=== PATIENT | female | born 1985 | race Two or more races ===

== ENCOUNTER 2017-03-10 03:55 | Inpatient (IN) | payer SELFPAY ==
[2017-03-10] MEDS ORDERED: IV RINGERS,LACTATED 1000ML 1,000 ML IV (04:30)
[2017-03-10] MEDS ORDERED: 0.9 % SODIUM CHLORIDE 10 ML DISP.SYRIN. IV ×2 (04:45→11:15)
[2017-03-10] MEDS ORDERED: TERBUTALINE 1 MG/ML VIAL. SQ (04:45)
[2017-03-10] MEDS ORDERED: fentaNYL PF VIAL 100 MCG/2 ML VIAL IV (04:45)
[2017-03-10] MEDS ORDERED: LIDOCAINE 1% PF 30 ML VIAL. INJ (04:45)
[2017-03-10] MEDS ORDERED: AMPICILLIN SODIUM 1 GM in IV NORMAL SALINE 50ML 50 ML IV (04:45)
[2017-03-10] MEDS ORDERED: BUTORPHANOL 2 MG/ML VIAL. IV ×2 (04:45)
[2017-03-10] MEDS: IV RINGERS,LACTATED 1000ML 1,000 ML IV (04:54)
[2017-03-10] MEDS: AMPICILLIN SODIUM 2 GM in IV NORMAL SALINE 100ML 100 ML IV (05:20)
[2017-03-10 06:09] LABS: HEMATOCRIT 38.5 % (36.0-47.0); HEMOGLOBIN 12.5 g/dL (12.0-15.5); MEAN CORPUSCULAR HEMOGLOBIN 27 pg (25-35); MEAN CORPUSCULAR HGB CONC 33 g/dL (31-37); MEAN CORPUSCULAR VOLUME 83 fL (79-100); PLATELET COUNT 144 x10^3/uL (140-400); RED BLOOD COUNT 4.61 x10^6/uL (3.50-5.40); RED CELL DISTRIBUTION WIDTH 14.5 % (11.5-14.5); WHITE BLOOD COUNT 8.1 x10^3/uL (4.0-11.0)
[2017-03-10] MEDS: OXYTOCIN 30 UNIT/500 ML PREMIX 500 ML IV ×2 (08:46)
[2017-03-10] MEDS ORDERED: AMPICILLIN SODIUM IV Push 1 GM VIAL. IVP (09:00)
[2017-03-10] MEDS: IBUPROFEN 600 MG TABLET. PO (10:27)
[2017-03-10] MEDS ORDERED: MAGNESIUM HYDROXIDE 2,400 MG/30 ML ORAL.SUSP. PO (11:15)
[2017-03-10] MEDS ORDERED: diphenhydrAMINE HCL 25 MG CAPSULE PO (11:15)
[2017-03-10] MEDS ORDERED: MMR per PROTOCOL. MC (11:15)
[2017-03-10] MEDS ORDERED: PHENYLEPH/MINERAL OIL/PETROLAT RECTAL OINTMENT 28GM TUBE. RC (11:15)
[2017-03-10] MEDS ORDERED: ACETAMINOPHEN 325 MG TABLET. PO (11:15)
[2017-03-10] MEDS ORDERED: ZOLPIDEM 5 MG TABLET. PO (11:15)
[2017-03-10] MEDS ORDERED: OXYTOCIN 30 UNIT/500 ML PREMIX 500 ML IV (11:15)
[2017-03-10] MEDS ORDERED: MAG HYDROX/ALUMINUM HYD/SIMETH 30 ML ORAL.SUSP PO (11:15)
[2017-03-10] MEDS ORDERED: BENZOCAINE 20% TOPICAL AEROSOL SPRAY 57GM CAN. TP (11:15)
[2017-03-10] MEDS ORDERED: HYDROCORTISONE 1% TOPICAL OINTMENT 30GM TUBE. TP (11:15)
[2017-03-10] MEDS ORDERED: SIMETHICONE 80 MG TAB.CHEW PO (11:15)
[2017-03-11 05:49] LABS: HEMATOCRIT 35.6 % (36.0-47.0)
[2017-03-11] MEDS: FERROUS SULFATE 325 MG TABLET. PO ×2 (08:00→17:00)
[2017-03-11] MEDS: IBUPROFEN 600 MG TABLET. PO (18:18)
[2017-03-13 08:21] LABS: RPR Non Reactive (Non Reactive)
== END 2017-03-12 16:05 | disposition home or self-care (01) | DRG 775 ==
LOC: 3 SO LND 03:55 → 3 NORTH 11:01
PROC: 10E0XZZ Delivery of Products of Conception, External Approach (ICD-10-PCS; principal; 2017-03-10)
DX: O80 Encounter for full-term uncomplicated delivery (principal); Z37.0 Single live birth; Z3A.40 40 weeks gestation of pregnancy
CPT/HCPCS: 36415; 85014; 85027; 86593; 86850; 86900; 86901; J0290; J2590; J7120

== ENCOUNTER 2020-02-28 21:43 | Emergency (ER) | payer MEDICAID ==
[~2020-02-28] VITALS: Ht 162.6 cm; Wt 109.0 kg
[~2020-02-28 21:43] MED LIST: HYDR-3164 PO; NAPR-514 PO
--- NOTE | 2020-02-28 21:53 | PHYS DOC ---
Past Medical History Smoking Status: Never Smoker (ROSELYN JOHNSON APRN) General Adult EDM: Chief Complaint: DIZZY/LIGHT HEADED HPI: HPI: Patient is a 35 year old female 6 para 5 currently 38 weeks presenting to the ED today complaining of nausea vomiting and dizziness that began this evening. Patient denies any abdominal pain, denies any back pain. Denies any vaginal bleeding. She states she follows up with an AVIONICS REPAIR TECHNICIAN at [facility]. Patient is Israeli-speaking, interpretation is provided by [employer] marina manager (ROSELYN JOHNSON APRN) Review of Systems: Review of Systems: Constitutional: Denies fever or chills. [] Eyes: Denies change in visual acuity. [] HENT: Denies nasal congestion or sore throat. [] Respiratory: Denies cough or shortness of breath. [] Cardiovascular: Denies chest pain or edema. [] GI: Reports being . Reports nausea vomiting. Denies abdominal pain, bloody stools or diarrhea. [] : Denies dysuria. [] Musculoskeletal: Denies back pain or joint pain. [] Integument: Denies rash. [] Neurologic: Reports dizziness. Denies headache, focal weakness or sensory changes. [] Psychiatric: Denies depression or anxiety. [] (ROSELYN JOHNSON APRN) Heart Score: Risk Factors: Risk Factors: DM, Current or recent (<one month) smoker, HTN, HLP, family history of CAD, obesity. Risk Scores: Score 0 - 3: 2.5% MACE over next 6 weeks - Discharge Home Score 4 - 6: 20.3% MACE over next 6 weeks - Admit for Clinical Observation Score 7 - 10: 72.7% MACE over next 6 weeks - Early Invasive Strategies (ROSELYN JOHNSON APRN) Allergies: Allergies: Allergies Coded Allergies Type Severity Reaction Last Updated Verified No Known Drug Allergies 03/10/17 No (ROSELYN JOHNSON APRN) Physical Exam: PE: Constitutional: Well developed, well nourished, no acute distress, non-toxic appearance. [] HENT: Normocephalic, atraumatic, bilateral external ears normal, oropharynx mo ist, no oral exudates, nose normal. [] Eyes: PERRLA, EOMI, conjunctiva normal, no discharge. [] Neck: Normal range of motion, no tenderness, supple, no stridor. [] Cardiovascular:Heart rate regular rhythm, no murmur [] Lungs & Thorax: Bilateral breath sounds clear to auscultation [] Abdomen: Gravid abdomen. Bowel sounds normal, soft, no tenderness, no masses, no pulsatile masses. [] Skin: Warm, dry, no erythema, no rash. [] Back: No tenderness, no CVA tenderness. [] Extremities: No tenderness, no cyanosis, no clubbing, ROM intact, no edema. [] Neurologic: Alert and oriented X 3, normal motor function, normal sensory function, no focal deficits noted. [] Psychologic: Affect normal, judgement normal, mood normal. [] (ROSELYN JOHNSON APRN) EKG: EKG: [] (ROSELYN JOHNSON APRN) Radiology/Procedures: Radiology/Procedures: [] (ROSELYN JOHNSON APRN) Course & Med Decision Making: Course & Med Decision Making Pertinent Labs and Imaging studies reviewed. (See chart for details) This is a 35-year-old female patient 6 para 5 currently 38 weeks presenting to the ED today complaining of nausea vomiting and dizziness that began this evening. Patient has no abdominal pain, no back pain, no vaginal bleeding. Labs are negative for any acute findings including UA. Patient was given IV fluids and Zofran. Feeling better. Discharge to OB for monitoring. (ROSELYN JOHNSON APRN) Dragon Disclaimer: Dragon Disclaimer: This electronic medical record was generated, in whole or in part, using a voice recognition dictation system. (ROSELYN JOHNSON APRN) Departure Departure Impression: Primary Impression: Vomiting during Additional Impression: Dizziness Disposition: 01 DC HOME SELF CARE/HOMELESS Condition: STABLE Referrals: NO PCP (PCP) Follow-up with your AVIONICS REPAIR TECHNICIAN next week Patient Instructions: ABCs of , Nausea and Vomiting, [id number] Additional Instructions: You were evaluated in the emergency room for vomiting and dizziness. Please head to the OB floor for monitoring. After that you can go home if they discharge you and follow-up with your own doctor Scripts Ondansetron Hcl (ZOFRAN) 4 Mg Tablet 1 TAB PO Q6HRS, #20 TAB Prov: ROSELYN JOHNSON APRN 02/28/20 Attending Signature Attending Signature I have reviewed the PA/PENS AND PENCILS REPAIRER's note and plan of care. I was available for consultation as needed during the patient's visit in the emergency department. I agree with the clinical impression, plan, and disposition. (ELI CORRALES DO) ROSELYN JOHNSON APRN Feb 28, 2020 21:53 ELI CORRALES DO Feb 29, 2020 03:08
[2020-02-28 22:07] LABS: BASO # 0.1 x10^3/uL (0.0-0.2); BASO % 1 % (0-3); EOS # 0.1 x10^3/uL (0.0-0.7); EOS % 1 % (0-3); HEMATOCRIT 33.5 % (36.0-47.0); HEMOGLOBIN 11.1 g/dL (12.0-15.5); LYMPH # 1.8 x10^3/uL (1.0-4.8); LYMPH % 18 % (24-48); MEAN CORPUSCULAR HEMOGLOBIN 26 pg (25-35); MEAN CORPUSCULAR HGB CONC 33 g/dL (31-37); MEAN CORPUSCULAR VOLUME 77 fL (79-100); MONO # 0.7 x10^3/uL (0.0-1.1); MONO % 7 % (0-9); NEUT # 7.5 x10^3/uL (1.8-7.7); NEUT % 73 % (31-73); PLATELET COUNT 159 x10^3/uL (140-400); RED BLOOD COUNT 4.34 x10^6/uL (3.50-5.40); RED CELL DISTRIBUTION WIDTH 14.6 % (11.5-14.5); WHITE BLOOD COUNT 10.2 x10^3/uL (4.0-11.0)
[2020-02-28 22:19] LABS: CALCIUM 8.9 mg/dL (8.5-10.1); CREATININE 0.7 mg/dL (0.6-1.0); GFR 94.7; POTASSIUM 3.7 mmol/L (3.5-5.1)
[2020-02-28 22:26] LABS: ALBUMIN 2.6 g/dL (3.4-5.0); ALBUMIN/GLOBULIN RATIO 0.6 (1.0-1.7); TOTAL BILIRUBIN 0.6 mg/dL (0.2-1.0)
[2020-02-28] MEDS ORDERED: ONDANSETRON PF 4 MG/2 ML VIAL. IVP ONE (22:30)
[2020-02-28] MEDS ORDERED: IV NORMAL SALINE 1000ML BAG 1,000 ML IV ONE (22:30)
[2020-02-28 23:26] LABS: BILIRUBIN,URINE NEGATIVE (NEG); CLARITY,URINE CLEAR; COLOR,URINE YELLOW; NITRITE,URINE NEGATIVE (NEG); PH,URINE 6.5 (<5.0-8.0); PROTEIN,URINE NEGATIVE (NEG-TRACE); UROBILINOGEN,URINE 0.2 mg/dL (0.2 mg/dL)
[2020-02-28 23:32] LABS: AMPHETAMINE/METHAMPHETAMINE NEG (NEG); BACTERIA,URINE FEW /HPF (0-FEW); BARBITURATES NEG (NEG); BENZODIAZEPINES NEG (NEG); CANNABINOIDS NEG (NEG); COCAINE NEG (NEG); METHADONE NEG (NEG); OPIATES NEG (NEG); PHENCYCLIDINE NEG (NEG); RBC,URINE OCC /HPF (0-2); WBC,URINE OCC /HPF (0-4)
[2020-02-28] MEDS ORDERED: ONDA4TAB7 PO (23:40)
[2020-02-28 23:43] VITALS: BP 103/57
[2020-03-18] MEDS ORDERED: IBUP-1060 PO (08:47)
[2020-03-18] MEDS ORDERED: DOCU-109 PO (08:47)
[2020-03-18] MEDS ORDERED: FERR325T14 PO (08:47)
[2020-03-18] MEDS ORDERED: OXYC1TAB15 PO (08:47)
== END 2020-02-29 00:06 | disposition home or self-care (01) ==
LOC: ER 21:43
DX: O21.9 Vomiting of pregnancy, unspecified (principal); R42 Dizziness and giddiness; Z3A.38 38 weeks gestation of pregnancy
CPT/HCPCS: 36415; 80053; 80307; 81001; 85025; 96361; 96374; 99285; G0480; J2405; J7030; 96375

== ENCOUNTER 2020-02-28 23:59 | Observation (INO) | payer MEDICAID ==
[2020-02-28 21:45] VITALS: BP 161/115
[~2020-02-28 23:59] MED LIST changes: +ONDA4TAB7 PO
[2020-02-29] MEDS ORDERED: IV RINGERS,LACTATED 1000ML 1,000 ML IV PRN (00:15)
[2020-02-29] MEDS ORDERED: ONDANSETRON PF 4 MG/2 ML VIAL. IVP PRN (00:15)
[2020-02-29] MEDS ORDERED: ACETAMINOPHEN 325 MG TABLET. PO PRN (00:15)
[2020-03-18] MEDS ORDERED: FERR325T14 PO (08:47)
[2020-03-18] MEDS ORDERED: OXYC1TAB15 PO (08:47)
[2020-03-18] MEDS ORDERED: DOCU-109 PO (08:47)
[2020-03-18] MEDS ORDERED: IBUP-1060 PO (08:47)
== END 2020-02-29 08:09 | disposition home or self-care (01) ==
LOC: 3 SO LND 23:59
PROVIDERS: ADMIT Obstetrics & Gynecology; ATTEND Obstetrics & Gynecology
DX: O21.2 Late vomiting of pregnancy (principal); O26.893 Other specified pregnancy related conditions, third trimester; R42 Dizziness and giddiness; Z3A.38 38 weeks gestation of pregnancy
CPT/HCPCS: 59025; 99284; G0378; G0379

== ENCOUNTER 2020-03-16 08:58 | Inpatient (IN) | payer SELFPAY ==
[~2020-03-16] VITALS: Ht 165.1 cm; Wt 107.0 kg
[2020-03-16] VITALS (12 sets, daily range): BP systolic 84–111; BP diastolic 52–71
[2020-03-16] MEDS ORDERED: fentaNYL PF VIAL 100 MCG/2 ML VIAL IVP PRN ×2 (09:45)
[2020-03-16] MEDS ORDERED: 0.9 % SODIUM CHLORIDE 10 ML DISP.SYRIN. IV PRN ×2 (09:45→13:00)
[2020-03-16] MEDS ORDERED: BUTORPHANOL 2 MG/ML VIAL. IVP PRN ×2 (09:45)
[2020-03-16] MEDS ORDERED: OXYTOCIN 30 UNIT/500 ML PREMIX 500 ML IV PRN ×2 (09:45→13:00)
[2020-03-16] MEDS ORDERED: IBUPROFEN 400 MG TABLET. PO PRN (09:45)
[2020-03-16] MEDS ORDERED: TERBUTALINE 1 MG/ML VIAL. SQ PRN (09:45)
[2020-03-16] MEDS ORDERED: LIDOCAINE 1% PF 30 ML VIAL. INJ PRN (09:45)
[2020-03-16] MEDS ORDERED: OXYTOCIN PREMIX 30 UNIT/500 ML NS BAG. IV ONE (10:05)
[2020-03-16] MEDS ORDERED: PNV1TABL25 PO (10:32)
[2020-03-16 10:40] LABS: BASO % 0 % (0-3); EOS # 0.1 x10^3/uL (0.0-0.7); EOS % 1 % (0-3); HEMATOCRIT 35.7 % (36.0-47.0); HEMOGLOBIN 11.7 g/dL (12.0-15.5); LYMPH # 1.2 x10^3/uL (1.0-4.8); LYMPH % 14 % (24-48); MEAN CORPUSCULAR HEMOGLOBIN 25 pg (25-35); MEAN CORPUSCULAR HGB CONC 33 g/dL (31-37); MEAN CORPUSCULAR VOLUME 76 fL (79-100); MONO # 0.3 x10^3/uL (0.0-1.1); MONO % 4 % (0-9); NEUT % 81 % (31-73); PLATELET COUNT 162 x10^3/uL (140-400); RED BLOOD COUNT 4.73 x10^6/uL (3.50-5.40); RED CELL DISTRIBUTION WIDTH 15.3 % (11.5-14.5); WHITE BLOOD COUNT 8.6 x10^3/uL (4.0-11.0)
[2020-03-16] MEDS ORDERED: PHENYLEPHRINE in 0.9% NACL PF 1 MG/10 ML SYRINGE. IV ONE (11:11)
[2020-03-16] MEDS ORDERED: ONDANSETRON PF 4 MG/2 ML VIAL. ONE (11:11)
[2020-03-16] MEDS ORDERED: fentaNYL PF VIAL 100 MCG/2 ML VIAL ONE (11:11)
[2020-03-16] MEDS ORDERED: ePHEDrine PF IN SALINE 50 MG/10 ML SYRINGE. IV ONE ×3 (11:11→13:15)
[2020-03-16] MEDS ORDERED: OXYTOCIN 10 UNIT/ML VIAL. ONE (11:12)
[2020-03-16] MEDS ORDERED: MORPHINE PF 10 MG/10 ML AMPUL. ONE (11:12)
[2020-03-16] MEDS ORDERED: AZITHROMYCIN 500 MG in IV NORMAL SALINE 250ML 250 ML IV ONE (11:15)
[2020-03-16] MEDS ORDERED: CITRIC ACID/SODIUM CITRATE 30 ML SOLUTION. PO ONE (11:15)
--- NOTE | 2020-03-16 11:19 | PDOC1 ---
[facility] H&P Date of Admission: Date of Admission: Mar 16, 2020 at 08:58 History of Present Illness: EDC: 03/19/20 LMP: 06/13/19 35y @ 39.4 by L=20 presents to L&D with ctxs. The pts cervix was checked and she was found to be 8 cm with a bulging bag. The presenting part could not be felt. AROM performed revealing concerns that the foot was the presenting part. BSUS performed revealing to be breech. The pt has had an otherwise uncomplicated with the only issue being AMA. The pt wonders if it is possible to get a BTL since we are performing a C/S. Explained that the consent needs to mature 30 days prior to performing a BTL PMH: Denies PSH: Denies Meds: ASA, PNV All: NKDA OBHx: 5 X tsvd SH: no tob, no EtOH FH: noncontributory Allergies: Coded Allergies: No Known Drug Allergies (Unverified , 03/10/17) Physical Exam: PE: GENERAL: No apparent distress. Alert and oriented. HEENT: Head normocephalic, atraumatic. NECK: Supple LUNGS: Clear to auscultation. HEART: RRR, S1, S2 present, pulses intact ABDOMEN: Soft, positive bowel sounds. EXTREMITIES: No cyanosis or edema. NEUROLOGIC: Normal speech, normal tone PSYCHIATRIC: Normal affect, normal mood. SKIN: No ulceration. FHT: 150s +acels/no decels/mLTV [place]: 5-8 min SVE: 6/C/-3 Labs: Laboratory Tests Test 03/16/20 09:53 White Blood Count 8.6 x10^3/uL (4.0-11.0) Red Blood Count 4.73 x10^6/uL (3.50-5.40) Hemoglobin 11.7 g/dL (12.0-15.5) L Hematocrit 35.7 % (36.0-47.0) L Mean Corpuscular Volume 76 fL (79-100) L Mean Corpuscular Hemoglobin 25 pg (25-35) Mean Corpuscular Hemoglobin Concent 33 g/dL (31-37) Red Cell Distribution Width 15.3 % (11.5-14.5) H Platelet Count 162 x10^3/uL (140-400) Neutrophils (%) (Auto) 81 % (31-73) H Lymphocytes (%) (Auto) 14 % (24-48) L Monocytes (%) (Auto) 4 % (0-9) Eosinophils (%) (Auto) 1 % (0-3) Basophils (%) (Auto) 0 % (0-3) Neutrophils # (Auto) 7.0 x10^3/uL (1.8-7.7) Lymphocytes # (Auto) 1.2 x10^3/uL (1.0-4.8) Monocytes # (Auto) 0.3 x10^3/uL (0.0-1.1) Eosinophils # (Auto) 0.1 x10^3/uL (0.0-0.7) Basophils # (Auto) 0.0 x10^3/uL (0.0-0.2) Laboratory Tests 03/16/20 09:53 Laboratory Tests 03/16/20 09:53 Assessment & Plan: A/P 35y [id number] @ 39.4 by L=20 1.) Breech will contact OR of primary LTCS 2.) AMA on ASA 3.) Fetus cat I FHT 4.) TDAP given 12/24/19 5.) GBS neg ELI MCKEON MD Mar 16, 2020 11:19
[2020-03-16] MEDS ORDERED: FAMOTIDINE 20 MG/2 ML VIAL ONE (11:31)
[2020-03-16] MEDS ORDERED: SUCCINYLCHOLINE 200 MG/10 ML VIAL. ONE (11:49)
[2020-03-16] MEDS ORDERED: ceFAZolin 2GM PREMIX 2 GM/50 ML BAG IV ONE (12:00)
[2020-03-16] MEDS ORDERED: diphenhydrAMINE ORAL ELIXIR 12.5 MG/5 ML ML PO PRN (13:00)
[2020-03-16] MEDS ORDERED: BENZOCAINE 20% TOPICAL AEROSOL SPRAY 57GM CAN. TP PRN (13:00)
[2020-03-16] MEDS ORDERED: TDaP (Adacel) per PROTOCOL. MC PRN (13:00)
[2020-03-16] MEDS ORDERED: MMR per PROTOCOL. MC PRN (13:00)
[2020-03-16] MEDS ORDERED: ACETAMINOPHEN 325 MG TABLET. PO PRN (13:00)
[2020-03-16] MEDS ORDERED: oxyCODONE/APAP 5/325 1 TAB TABLET PO PRN ×2 (13:00)
[2020-03-16] MEDS ORDERED: KETOROLAC 30 MG/ML VIAL. IVP PRN (13:00)
[2020-03-16] MEDS: IV RINGERS,LACTATED 1000ML 1,000 ML IV SCH ×6 (13:07→22:44)
--- NOTE | 2020-03-16 14:30 | PDOC4 ---
OPERATIVE NOTE: PreOp Dx: 1.) IUP @ 39.4 by L=20, 2.) Breech, 3.) AMA, 4.) GBS neg PostOp Dx: same, except 2.) transverse Procedure: Primary LTCS Surgeon: Ellyn Mckeon Anesthesia: Spinal EBL: 800 cc Fluids: 1800 cc UOP: 800 cc Complications: None Finings: viable male delivered at 1201. Wt 9 lb 3 oz. APGARS 8/9. Nml maternal anatomy. Path: Cord blood ELI MCKEON MD Mar 16, 2020 14:30
--- NOTE | 2020-03-16 15:19 | OP ---
DATE OF SURGERY: 03/16/2020 PREOPERATIVE DIAGNOSES: 1. Intrauterine at 39 weeks and 4 days by LMP equal to a 20-week ultrasound. 2. Breech presentation. 3. Advanced maternal age. 4. GBS negative. POSTOPERATIVE DIAGNOSES: 1. Intrauterine at 39 weeks and 4 days by LMP equal to a 20-week ultrasound. 2. Transverse presentation. 3. Advanced maternal age. 4. GBS negative. PROCEDURE: Primary low transverse . SURGEON: Kwame Mckeon MD ANESTHESIA: Spinal. ESTIMATED BLOOD LOSS: 800 mL. FLUIDS: 1800 mL. URINE OUTPUT: 800 mL. COMPLICATIONS: None. FINDINGS: Viable male infant delivered at 12:01, weighing 9 pounds 3 ounces with Apgars of 8 and 9. Normal maternal anatomy noted. PATHOLOGY: Cord blood. DESCRIPTION OF PROCEDURE: The patient was taken to the operating room where spinal anesthesia was placed without difficulty. The patient was prepped and draped in normal sterile fashion. A Pfannenstiel skin incision was made approximately 2 cm above her pubic symphysis and carried down to underlying layer of fascia. The fascia was then nicked in the midline. The fascial incision was then extended laterally with Presley scissors. Superior aspect of the fascial incision was grasped with Rose Mary clamps, elevated and the underlying rectus muscle was dissected off with blunt dissection and Presley scissors. Attention was then turned to the inferior aspect of fascial incision, which was grasped with Rose Mary clamps, elevated and underlying rectus muscle was dissected off with Presley scissors. At that point, the midline of the rectus muscle was identified and . The peritoneum was then grasped with 2 hemostats and tented up to allow for it to be entered sharply with Metzenbaum scissors. At that point, the peritoneal incision was then extended superiorly and inferiorly with good visualization of the bladder with traction and countertraction. Sherwin ring was then placed into the abdomen to better visualize the lower uterine segment. At that point, the bladder flap was created with Metzenbaum scissors. The lower uterine segment was then incised in transverse fashion. The hysterotomy was then extended with traction and countertraction. The infant's right arm was then exiting the hysterotomy. The right arm was reduced. The legs were unable to be reached, but the head was reachable in the left upper quadrant. An internal version was performed to rotate the infant to vertex. Once the infant was rotated into position, the head was able to be delivered through the hysterotomy. The rest of was delivered atraumatically. At that point, the nose and mouth were suctioned. The cord was double clamped and cut and the infant was handed over to waiting rating examiner. Placenta was then removed manually and the uterus was cleared of all clots and debris. Uterine incision was then repaired with #1 chromic in a running locked fashion. Second layer of the same suture was used to imbricate. Good hemostasis was noted. At that point, the gutters were copiously irrigated and cleared of all clots and debris. The Sherwin ring was then removed. The peritoneum was then reapproximated with 2-0 Vicryl in a running fashion. The muscle was reapproximated with 2-0 Vicryl in a running fashion. The fascia was then closed with 0 Vicryl in a running fashion. The space was closed with 3 interrupted stitches of 2-0 Vicryl. The skin was closed with 3-0 Monocryl in a subcuticular manner. The patient tolerated the procedure well. Sponge, laps, and needles were correct x 3. 2 grams of Ancef as well as 500 mg of azithromycin were given prior to the procedure. The patient tolerated the procedure well and was taken to recovery room in stable condition. KWAME MCKEON MD DR: RENNY/lilian JOB#: [id number] / [id number] REGINA
[2020-03-17 04:14] VITALS: BP 102/59
[2020-03-17 06:49] LABS: HEMATOCRIT 25.6 % (36.0-47.0); HEMOGLOBIN 8.3 g/dL (12.0-15.5); RED BLOOD COUNT 3.36 x10^6/uL (3.50-5.40); WHITE BLOOD COUNT 8.3 x10^3/uL (4.0-11.0)
[2020-03-17] MEDS: DOCUSATE SODIUM 100 MG CAPSULE. PO PRN ×2 (08:38→18:46)
[2020-03-17] MEDS: FERROUS SULFATE 325 MG TABLET. PO SCH ×2 (08:39→18:46)
[2020-03-17] MEDS: PRENATAL MULTIVITAMIN TABLET. PO SCH (08:39)
[2020-03-17] MEDS ORDERED: MULTIVITAMIN with MINERAL TABLET. PO SCH (09:00)
[2020-03-17 10:00] VITALS: BP_SYST 92; BP_DIAS 55; BP_DIAS 95
[2020-03-17] MEDS ORDERED: SIMETHICONE 80 MG TAB.CHEW PO PRN (11:30)
--- NOTE | 2020-03-17 12:33 | PDOC ---
REFINERY OPERATOR CRUDE UNIT PROGRESS NOTE Date of Service: DATE: 03/17/20 TIME: 12:32 Subjective: Pt with good pain control. Lyubov PO. Voiding. Minimal lochia. Objective: Vital Signs: Vital Signs Date Time Temp Pulse Resp B/P (MAP) Pulse Ox O2 Delivery O2 Flow Rate FiO2 03/16/20 09:20 98.3 93 20 111/71 (84) Room Air 98.3 03/16/20 17:40 97 Vital Signs Date Time Temp Pulse Resp B/P (MAP) Pulse Ox O2 Delivery O2 Flow Rate FiO2 03/17/20 04:14 98.8 86 18 102/59 (73) 99 Room Air 98.8 Labs: Laboratory Tests Test 03/17/20 06:20 White Blood Count 8.3 x10^3/uL (4.0-11.0) Red Blood Count 3.36 x10^6/uL (3.50-5.40) L Hemoglobin 8.3 g/dL (12.0-15.5) L Hematocrit 25.6 % (36.0-47.0) L Mean Corpuscular Volume 76 fL (79-100) L Mean Corpuscular Hemoglobin 25 pg (25-35) Mean Corpuscular Hemoglobin Concent 32 g/dL (31-37) Red Cell Distribution Width 15.0 % (11.5-14.5) H Platelet Count 123 x10^3/uL (140-400) L Laboratory Tests 03/17/20 06:20 Laboratory Tests 03/17/20 06:20 Physical Exam: GENERAL: No apparent distress. Alert and oriented. HEENT: Head normocephalic, atraumatic. NECK: Supple LUNGS: Clear to auscultation. HEART: RRR, S1, S2 present, pulses intact ABDOMEN: Soft, positive bowel sounds. EXTREMITIES: No cyanosis or edema. NEUROLOGIC: Normal speech, normal tone PSYCHIATRIC: Normal affect, normal mood. SKIN: No ulceration. FFNT below umb No C/C/E Inc: dressing dry Assessment & Plan: A/P 35y [id number] POD #1 s/p primary LTCS 1.) PO doing well 2.) Anemia - Hgb 11.7 -> 8.3, on Fe BID 3.) TDAP given 12/24/19 4.) Cont PO care ELI MCKEON MD Mar 17, 2020 12:33
[2020-03-17 18:44] VITALS: BP 92/55
[2020-03-17] MEDS: IBUPROFEN 400 MG TABLET. PO PRN (18:47)
[2020-03-17 22:49] VITALS: BP 96/43
[2020-03-18] MEDS: IV RINGERS,LACTATED 1000ML 1,000 ML IV SCH ×2 (01:45→08:35)
[2020-03-18] MEDS: IBUPROFEN 400 MG TABLET. PO PRN (05:00)
[2020-03-18 05:31] VITALS: BP 106/68
--- NOTE | 2020-03-18 07:57 | NUR ---
cody OMER is responsible for the ob assessment
[2020-03-18] MEDS: PRENATAL MULTIVITAMIN TABLET. PO SCH (08:33)
[2020-03-18] MEDS: FERROUS SULFATE 325 MG TABLET. PO SCH (08:33)
[2020-03-18] MEDS ORDERED: OXYC1TAB15 PO (08:47)
[2020-03-18] MEDS ORDERED: DOCU-109 PO (08:47)
[2020-03-18] MEDS ORDERED: FERR325T14 PO (08:47)
[2020-03-18] MEDS ORDERED: IBUP-1060 PO (08:47)
--- NOTE | 2020-03-18 10:18 | PDOC ---
PROGRAM AIDE PROGRESS NOTE Date of Service: DATE: 03/18/20 TIME: 10:17 Subjective: Pt with good pain control. Lyubov PO. Voiding. Minimal lochia. Objective: Vital Signs: Vital Signs Date Time Temp Pulse Resp B/P (MAP) Pulse Ox O2 Delivery O2 Flow Rate FiO2 03/17/20 10:00 98.2 88 18 92/55 (67) 96 Room Air 98.2 Vital Signs Date Time Temp Pulse Resp B/P (MAP) Pulse Ox O2 Delivery O2 Flow Rate FiO2 03/18/20 08:00 Room Air 03/18/20 05:31 98.0 83 16 106/68 (81) 98 98.0 Physical Exam: GENERAL: No apparent distress. Alert and oriented. HEENT: Head normocephalic, atraumatic. NECK: Supple LUNGS: Clear to auscultation. HEART: RRR, S1, S2 present, pulses intact ABDOMEN: Soft, positive bowel sounds. EXTREMITIES: No cyanosis or edema. NEUROLOGIC: Normal speech, normal tone PSYCHIATRIC: Normal affect, normal mood. SKIN: No ulceration. FFNT below umb No C/C/E Inc: C/D/I Assessment & Plan: A/P 35y [id number] POD #2 s/p primary LTCS 1.) PO doing well 2.) Hgb 11.7 -> 8.3 3.) TDAP given 12/24/19 4.) Cont PO care ELI MCKEON MD Mar 18, 2020 10:18
--- NOTE | 2020-03-18 10:34 | DS ---
DATE OF DISCHARGE: 03/18/2020 ADMISSION DIAGNOSES: 1. Intrauterine at 39 weeks and 4 days by LMP equal to a 20-week ultrasound. 2. Active labor. 3. Breech presentation. 4. Advanced maternal age. 5. GBS negative. DISCHARGE DIAGNOSES: 1. Intrauterine at 39 weeks and 4 days by LMP equal to a 20-week ultrasound. 2. Active labor. 3. Breech presentation. 4. Advanced maternal age. 5. GBS negative. PROCEDURE: Primary low transverse . BRIEF HOSPITAL COURSE: The patient is a 35-year-old 6, para 5-0-0-5, who presented to Labor and Delivery at 39 weeks and 4 days by LMP equal to a 20-week ultrasound with contractions. The patient was found to be 8 cm with a bulging bag. The presenting part could not be felt. Artificial rupture of membranes was performed revealing the presenting part not to be the head. A bedside ultrasound was performed revealing the to be in breech presentation. The patient had an otherwise uncomplicated outside of being advanced maternal age. Prior to mobilizing the team for a primary , the patient and wondered if it would be possible for a tubal ligation. It was explained to them that tubal consent papers had to mature 530 days before the procedure could be performed, they understood. The patient underwent said procedure and by postoperative day #2, the patient was meeting all discharge criteria and was subsequently discharged home. Of note, the patient's hemoglobin on presentation was 11.7 and postoperatively was found to be 8.3. DISCHARGE INSTRUCTIONS: The patient was told not to lift anything greater than 20 pounds, have pelvic rest for 6 weeks, not to drive on narcotics. CALL IF: The patient was to call if she had fevers, chills, nausea, vomiting, abdominal pain or any additional questions or concerns. FOLLOWUP APPOINTMENT: The patient is to follow up at [facility] on 03/25/2020 at 1:00 p.m. for an incision check. DISCHARGE MEDICATIONS: The patient was given a prescription for Percocet 5, 15 pills; Motrin 800 mg, 30 pills; Colace 100 mg, 30 pills and ferrous sulfate 325 mg, 30 pills. ELI MCKEON MD DR: RENNY/lilian ISLAS#: [id number] / [id number]
[2020-03-18 10:48] VITALS: BP 92/53
--- NOTE | 2020-03-18 16:50 | NUR ---
reviewed discharge instructions with Sofiya via a news editor phone. reviewed 1st and 2nd follow up at [facility] at 1 pm on 03/18/20. reviewed restrictions to activities of daily living such as bathing and driving. discussed incisional care. instructed on vaginal care and no sex for 6 weeks. reviewed medications. questions answered. awaiting nursery rn to review discharge instructions
[2020-03-18 17:01] VITALS: BP 113/65
--- NOTE | 2020-03-19 15:08 | PATHOLOGY ---
[facility] Accession Number: [id number] . 01 Material submitted: . placenta - PLACENTA AND CORD . 01 Clinical history: . TERM , BREECH PRESENTATION EDC 2-5-21 SPONT. LABOR . 02 Diagnosis: 621 gram term placenta of an estimated 39 weeks 4 days gestation with attached membranes and attached and separate segments of umbilical cord, section: - Bilobate placenta. 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 (ZEEM:hayley; 03/19/2020) [facility] 03/19/2020 1241 Local . 02 Comment: There is no evidence of an acute chorioamnionitis or villitis. (ZEEM:hayley; 03/19/2020) . 02 Electronically signed: . Nolberto Ott MD, Pathologist NPI- [id number] . 01 Gross description: . Received in formalin labeled "Sofiya Ramos, placenta" is a bilobed kennedy placenta with attached membranes and umbilical cord. The placental disc measures 25.0 x 15.0 x 4.2 cm. The membranes are partially torn. The membranes are transparent and thin with the site of membrane rupture unable to be determined. The membranes have marginal insertion. The umbilical cord measures 14.5 cm in length, 1.4 cm in diameter, contains three vessels and inserts centrally, 4.5 cm from the closest placental margin. There are no true knots in the umbilical cord. A separate segment of umbilical cord is present within the container measuring 20.0 cm in length and 1.8 cm in diameter The trimmed placental weight is 621 grams. The surface is blue-barraza with minimal subchorionic fibrin. Amnion nodosum is not present. Cysts are not present. The maternal surface has intact cotyledons and no basal hemorrhage. Sectioning through the placental disc reveals no calcifications and one yellow-jaquez lesion measuring 1.8 cm, comprising 1% of the placental tissue. Construction Foreman sections are submitted as follows: . A1 proximal and distal umbilical cord A2 membranes, rolled A3 pest control service representative peripheral placenta A4-A5 pest control service representative central placenta with yellow-jaquez lesion A6 additional maternal surface A7 surface adjacent to umbilical cord insertion site ([facility] [place]; 03/18/2020) [facility] 03/19/2020 1236 Local . 02 Pathologist provided ICD-10: O43.813, O43.893, Z37.0, Z3A.39 . 02 CPT . 513564 Specimen Comment: A courtesy copy of this report has been sent to [phone] Specimen Comment: Report sent to Performed at: 01 [facility] [address], [place] [id number] MD Riley Bautista MD Phone: [phone] Performed at: 02 [facility] [address], [place] [id number] MD Nolberto Ott MD Phone: [phone]
== END 2020-03-18 18:17 | disposition home or self-care (01) | DRG 788 ==
LOC: 3 SO LND 08:58 → OBSVTOIN 09:40 → 3 SO LND 12:53 → 3 NORTH 19:01 → UNDODISOB 03-18 18:17
PROVIDERS: ADMIT Obstetrics & Gynecology; ATTEND Obstetrics & Gynecology
PROC: 10D00Z1 Extraction of Products of Conception, Low, Open Approach (ICD-10-PCS; principal; 2020-03-16)
PROC: 4A1HXCZ Monitoring of Products of Conception, Cardiac Rate, External Approach (ICD-10-PCS; 2020-03-16)
DX: O32.1XX0 Maternal care for breech presentation, not applicable or unspecified (principal); O32.2XX0 Maternal care for transverse and oblique lie, not applicable or unspecified; Z20.822 Contact with and (suspected) exposure to COVID-19; Z37.0 Single live birth; Z3A.39 39 weeks gestation of pregnancy
CPT/HCPCS: 36415; 85025; 85027; 86592; 86850; 86900; 86901; 87426; 88307; G0378; G0379; J0330; J0690; J1885; J2274; J2370; J2405; J2590; J3010; J3490; J7120; U0003